=== PATIENT | female | born 1975 | race Caucasian/White ===

== ENCOUNTER → 2017-03-03 | Outpatient (CLI) | payer BC | END | disposition home or self-care (01) | LOC: CFH 13:09 | PROVIDERS: ATTEND Obstetrics & Gynecology | DX: Z12.31 Encounter for screening mammogram for malignant neoplasm of breast (principal) | CPT/HCPCS: 77063; G0202 ==

== ENCOUNTER → 2019-10-18 | Outpatient (CLI) | payer BC | END | disposition home or self-care (01) | LOC: CFH 09:46 | PROVIDERS: ATTEND Obstetrics & Gynecology | DX: R92.8 Other abnormal and inconclusive findings on diagnostic imaging of breast (principal); R23.4 Changes in skin texture | CPT/HCPCS: 76642; 77066; G0279 ==

== ENCOUNTER 2019-10-21 13:07 | Outpatient (CLI) | payer BC ==
[2019-10-21] MEDS ORDERED: LIDOCAINE 1%, 20ML ONE (13:30)
[2019-10-21] MEDS ORDERED: LIDOCAINE 1%-EPI 1:100K, 20ML ONE (13:30)
[2019-10-21] MEDS ORDERED: SODIUM BICARBONATE 4.2%, 5ML ONE (13:30)
== END 2019-10-21 23:59 | disposition home or self-care (01) ==
LOC: CFH 13:07
PROVIDERS: ATTEND Obstetrics & Gynecology
DX: N63.10 Unspecified lump in the right breast, unspecified quadrant (principal); C50.811 Malignant neoplasm of overlapping sites of right female breast; Z17.0 Estrogen receptor positive status [ER+]
CPT/HCPCS: 19083; 77065; 88305; 88341; 88342; 88360; J3490; 19285

== ENCOUNTER 2019-12-02 09:36 | Day surgery (SDC) | payer BC ==
[2019-11-29 11:12] LABS: BASOPHILS # (AUTO) 0.03 x10^3/uL (0-0.1); BASOPHILS % (AUTO) 1 % (0-1); EOSINOPHILS # (AUTO) 0.16 x10^3/uL (0-0.4); EOSINOPHILS % (AUTO) 4 % (1-7); LYMPHOCYTES # (AUTO) 1.98 x10^3/uL (1-3.4); LYMPHOCYTES % (AUTO) 49 % (22-44); MD NO; MEAN CORPUSCULAR HEMOGLOBIN 31.4 pg (27.0-34.8); MEAN CORPUSCULAR HGB CONC 33.8 g/dL (32.4-35.8); MEAN PLATELET VOLUME 8.6 fL (7.4-10.4); MONOCYTES % (AUTO) 5 % (2-9); NEUTROPHILS % (AUTO) 42 % (42-75); PLATELET COUNT 343 x10^3/uL (130-400); RED BLOOD COUNT 4.35 x10^6/uL (3.82-5.3); RED CELL DISTRIBUTION WIDTH 12.7 % (9.6-15.2)
[~2019-12-02] VITALS: Ht 170.2 cm; Wt 87.3 kg
[~2019-12-02 09:36] MED LIST: BACITRACIN 50,000 UNIT ONE; BUPIVACAINE/PF 0.5% ONE; CEFAZOLIN 1,000 MG ONE; CHOL10003 PO; EPINEPHRINE 1 MG/ML, 1ML ONE; GENTAMICIN 80 MG/2 ML ONE; ISOSULFAN BLUE 10 MG/ML, 5ML IV ONE; MULT-658 PO
[2019-12-02 10:01] VITALS: BP 127/88
[2019-12-02] MEDS ORDERED: LACTATED RINGERS 1,000 ML IV SCH (10:03)
[2019-12-02] MEDS ORDERED: CHLORHEXIDINE 15 ML UDC ONE (10:17)
[2019-12-02] MEDS ORDERED: ACETAMINOPHEN 500 MG TABLET PO STA (10:28)
[2019-12-02] MEDS ORDERED: SCOPOLAMINE 1MG PATCH TD SCH (10:28)
[2019-12-02] MEDS ORDERED: CHLORHEXIDINE 15 ML UDC MM ONE (10:30)
[2019-12-02] MEDS ORDERED: ACETAMINOPHEN 500 MG TABLET ONE (10:31)
[2019-12-02] MEDS ORDERED: SCOPOLAMINE 1MG PATCH TD ONE (10:31)
[2019-12-02] MEDS ORDERED: MIDAZOLAM 1 MG/ML, 2ML ONE (10:47)
[2019-12-02] MEDS ORDERED: FENTANYL PF 250 MCG/5ML ONE (10:47)
[2019-12-02] MEDS ORDERED: HYDROmorphone 1 MG/ML, 1ML INJ IVPush PRN (11:00)
[2019-12-02] MEDS ORDERED: DIAZEPAM 5 MG/ML, 2ML IVPush PRN (11:00)
[2019-12-02] MEDS ORDERED: ONDANSETRON 2MG/ML, 2ML IVPush PRN (11:00)
[2019-12-02] MEDS ORDERED: PROMETHAZINE 25 MG/ML, 1ML IVPush PRN (11:00)
[2019-12-02] MEDS ORDERED: MEPERIDINE/PF 25MG/0.5ML IVPush PRN (11:00)
[2019-12-02] MEDS ORDERED: OXYcodone 5 MG/5 ML ORAL.SOL UDC PO PRN (11:00)
[2019-12-02] MEDS ORDERED: ONDANSETRON 2MG/ML, 2ML ONE (11:26)
[2019-12-02] MEDS ORDERED: SUCCINYLCHOLINE 20 MG/ML, 10ML ONE (11:26)
[2019-12-02] MEDS ORDERED: KETOROLAC 30 MG/1 ML ONE (11:26)
[2019-12-02] MEDS ORDERED: DEXAMETHASONE 4 MG/ML, 1ML ONE (11:26)
[2019-12-02] MEDS ORDERED: PROPOFOL 10 MG/ML, 20ML ONE (11:26)
[2019-12-02] MEDS ORDERED: CEFAZOLIN 1,000 MG IM ONE (11:58)
[2019-12-02] MEDS ORDERED: BACITRACIN 50,000 UNIT IRRIG ONE (11:58)
[2019-12-02] MEDS ORDERED: BUPIVACAINE/PF-EPI 0.5% 1:200K INFIL ONE (11:58)
[2019-12-02] MEDS ORDERED: GENTAMICIN 80 MG/2 ML IV ONE (11:58)
[2019-12-02] MEDS ORDERED: ISOSULFAN BLUE 10 MG/ML, 5ML IV ONE (12:15)
[2019-12-02] MEDS ORDERED: FENTANYL PF 100 MCG/2ML ONE (14:05)
[2019-12-02] MEDS ORDERED: OXYcodone 5 MG/5 ML ORAL.SOL UDC ONE (14:06)
[2019-12-02] MEDS: FENTANYL PF 100 MCG/2ML IV PRN ×2 (14:17→14:24)
[2019-12-02] MEDS ORDERED: morphine SULFATE 10 MG/ML, 1ML ONE (15:06)
[2019-12-02] MEDS ORDERED: morphine SULFATE 10 MG/ML, 1ML IVPush PRN (15:30)
== END 2019-12-02 16:55 | disposition home or self-care (01) ==
LOC: OUT 09:36 → EDSTATUS 12:00 → OUT 16:55
PROVIDERS: ATTEND Surgery
DX: C50.411 Malignant neoplasm of upper-outer quadrant of right female breast (principal); Z20.828 Contact with and (suspected) exposure to other viral communicable diseases; D24.2 Benign neoplasm of left breast; N65.1 Disproportion of reconstructed breast; J45.909 Unspecified asthma, uncomplicated; Z17.0 Estrogen receptor positive status [ER+]; Z79.899 Other long term (current) drug therapy; Z87.891 Personal history of nicotine dependence; Z88.2 Allergy status to sulfonamides; Z91.040 Latex allergy status; Z91.048 Other nonmedicinal substance allergy status; Z98.890 Other specified postprocedural states; Z82.49 Family history of ischemic heart disease and other diseases of the circulatory system
CPT/HCPCS: 15570; 19301; 19316; 19318; 36415; 38525; 38792; 76098; 84703; 85025; 87635; 88305; 88307; 88329; 88333; 88342; 88360; A9541; C1729; J0171; J0330; J0690; J1100; J1580; J1885; J2250; J2270; J2405; J2704; J3010; J7120; A9552

== ENCOUNTER → 2020-02-01 | Outpatient (CLI) | payer BC ==
[~2020-02-01] MED LIST changes: +ACET600C6 PO; -BACITRACIN 50,000 UNIT ONE; -BUPIVACAINE/PF 0.5% ONE; -CEFAZOLIN 1,000 MG ONE; +ELDERBERRY FRUIT PO; -EPINEPHRINE 1 MG/ML, 1ML ONE; -GENTAMICIN 80 MG/2 ML ONE; -ISOSULFAN BLUE 10 MG/ML, 5ML IV ONE; +MULT-108 PO; +[UNRECOGNIZED DRUG - OTHER] PO; +[UNRECOGNIZED DRUG - OTHER] PO; +vitamin C PO
[2020-02-01 15:32] LABS: BASOPHILS % (AUTO) 1 % (0-1); EOSINOPHILS % (AUTO) 2 % (1-7); LYMPHOCYTES % (AUTO) 36 % (22-44); MEAN CORPUSCULAR HEMOGLOBIN 31.9 pg (27.0-34.8); MEAN CORPUSCULAR HGB CONC 33.5 g/dL (32.4-35.8); MEAN PLATELET VOLUME 8.6 fL (7.4-10.4); MONOCYTES % (AUTO) 6 % (2-9); NEUTROPHILS % (AUTO) 55 % (42-75); PLATELET COUNT 324 x10^3/uL (130-400); RED BLOOD COUNT 4.69 x10^6/uL (3.82-5.3); RED CELL DISTRIBUTION WIDTH 12.9 % (9.6-15.2)
[2020-02-01 15:35] LABS: MD NO
== END | disposition home or self-care (01) ==
LOC: STAR 13:28
PROVIDERS: ATTEND Surgery
DX: Z01.818 Encounter for other preprocedural examination (principal); Z01.812 Encounter for preprocedural laboratory examination; C50.411 Malignant neoplasm of upper-outer quadrant of right female breast
CPT/HCPCS: 36415; 84703; 85025

== ENCOUNTER 2020-02-05 05:40 | Day surgery (SDC) | payer BC ==
[~2020-02-05] VITALS: Ht 167.6 cm; Wt 89.1 kg
[~2020-02-05 05:40] MED LIST changes: +LIDOCAINE-MPF 1%, 5ML ONE
[2020-02-05 06:20] VITALS: BP 122/85
[2020-02-05] MEDS ORDERED: BACITRACIN 50,000 UNIT ONE (07:00)
[2020-02-05] MEDS ORDERED: BUPIVACAINE/PF 0.5% ONE (07:00)
[2020-02-05] MEDS ORDERED: EPINEPHRINE 1 MG/ML, 1ML ONE (07:00)
[2020-02-05] MEDS ORDERED: CEFAZOLIN 1,000 MG ONE (07:00)
[2020-02-05] MEDS ORDERED: GENTAMICIN 80 MG/2 ML ONE (07:00)
[2020-02-05] MEDS ORDERED: ISOSULFAN BLUE 10 MG/ML, 5ML IV ONE (07:00)
[2020-02-05] MEDS ORDERED: MIDAZOLAM 1 MG/ML, 2ML ONE (07:21)
[2020-02-05] MEDS ORDERED: FENTANYL PF 250 MCG/5ML ONE (07:21)
[2020-02-05] MEDS ORDERED: PROPOFOL 10 MG/ML, 20ML ONE (07:38)
[2020-02-05] MEDS ORDERED: DEXAMETHASONE 4 MG/ML, 1ML ONE (07:38)
[2020-02-05] MEDS ORDERED: SUCCINYLCHOLINE 20 MG/ML, 10ML ONE (07:38)
[2020-02-05] MEDS ORDERED: ROCURONIUM 10MG/ML,5ML ONE (07:38)
[2020-02-05] MEDS ORDERED: ONDANSETRON 2MG/ML, 2ML ONE (07:38)
[2020-02-05] MEDS ORDERED: KETOROLAC 30 MG/1 ML ONE (07:38)
[2020-02-05] MEDS ORDERED: BUPIVACAINE/PF-EPI 0.5% 1:200K INFIL ONE (08:32)
[2020-02-05] MEDS ORDERED: ONDANSETRON 2MG/ML, 2ML IVPush PRN ×2 (10:00→13:30)
[2020-02-05] MEDS ORDERED: MEPERIDINE/PF 25MG/0.5ML IVPush PRN (10:00)
[2020-02-05] MEDS ORDERED: OXYcodone 5 MG/5 ML ORAL.SOL UDC PO PRN (10:00)
[2020-02-05] MEDS ORDERED: PROMETHAZINE 25 MG/ML, 1ML IV PRN (10:00)
[2020-02-05] MEDS ORDERED: METOCLOPRAMIDE 5 MG/ML, 2ML IV PRN (10:00)
[2020-02-05] MEDS ORDERED: LABETALOL 5MG/ML, 20ML IV PRN (10:00)
[2020-02-05] MEDS ORDERED: DIAZEPAM 5 MG/ML, 2ML IV PRN ×2 (10:00)
[2020-02-05] MEDS ORDERED: hydrALAzine 20 MG/ML, 1ML IV PRN (10:00)
[2020-02-05] MEDS ORDERED: KETOROLAC 30 MG/1 ML IV PRN (10:00)
[2020-02-05] MEDS ORDERED: ALBUTEROL SULFATE 2.5 MG/3 ML NPPB PRN (10:00)
[2020-02-05] MEDS ORDERED: OXYcodone 5 MG/5 ML ORAL.SOL UDC ONE (10:57)
[2020-02-05] MEDS ORDERED: FENTANYL PF 100 MCG/2ML ONE (10:57)
[2020-02-05] MEDS: FENTANYL PF 100 MCG/2ML IV PRN ×2 (11:03→11:10)
[2020-02-05] MEDS ORDERED: HYDROmorphone 2 MG/ML, 1ML ONE (11:09)
[2020-02-05] MEDS: HYDROmorphone 1 MG/ML, 1ML INJ IV PRN ×3 (11:15→11:42)
[2020-02-05] MEDS ORDERED: LACTATED RINGERS 1,000 ML IV SCH (13:30)
[2020-02-05] MEDS ORDERED: MORPHINE SULFATE 4 MG/ML, 1ML IVPush PRN (13:30)
== END 2020-02-05 15:25 | disposition home or self-care (01) ==
LOC: RAD 05:40 → 4NE 06:14 → DCLOUNGE 15:09 → 4NE 15:20 → RAD 15:25
PROVIDERS: ATTEND Surgery
DX: C50.811 Malignant neoplasm of overlapping sites of right female breast (principal); J45.909 Unspecified asthma, uncomplicated; Z88.2 Allergy status to sulfonamides; Z88.1 Allergy status to other antibiotic agents; Z91.040 Latex allergy status; Z79.899 Other long term (current) drug therapy; Z72.89 Other problems related to lifestyle; Z87.891 Personal history of nicotine dependence; Z91.048 Other nonmedicinal substance allergy status; Z20.828 Contact with and (suspected) exposure to other viral communicable diseases; Z82.49 Family history of ischemic heart disease and other diseases of the circulatory system; Z80.3 Family history of malignant neoplasm of breast
CPT/HCPCS: 19301; 19357; 38525; 38792; 87635; 88307; 88333; A9541; C1729; C1762; C1789; J0171; J0330; J0690; J1100; J1170; J1580; J1885; J2250; J2405; J2704; J3010; G0378

== ENCOUNTER → 2020-02-23 | Outpatient (CLI) | payer BC ==
[~2020-02-23] MED LIST changes: -LIDOCAINE-MPF 1%, 5ML ONE
== END | disposition home or self-care (01) ==
LOC: ROC 07:19
PROVIDERS: ATTEND Radiology Radiation Oncology
DX: D05.12 Intraductal carcinoma in situ of left breast (principal); J45.909 Unspecified asthma, uncomplicated; Z79.899 Other long term (current) drug therapy; Z87.891 Personal history of nicotine dependence
CPT/HCPCS: 99214; G0463

== ENCOUNTER → 2020-07-14 | Outpatient (CLI) | payer BC ==
[~2020-07-14] MED LIST changes: +TAMO20TA PO
[2020-07-14 11:09] LABS: MICROSCOPIC INDICATED
[2020-07-14 11:10] LABS: BASOPHILS % (AUTO) 2 % (0-1); EOSINOPHILS % (AUTO) 3 % (1-7); LYMPHOCYTES % (AUTO) 56 % (22-44); MEAN CORPUSCULAR HEMOGLOBIN 31.7 pg (27.0-34.8); MEAN CORPUSCULAR HGB CONC 34.1 g/dL (32.4-35.8); MEAN PLATELET VOLUME 8.9 fL (7.4-10.4); MONOCYTES % (AUTO) 7 % (2-9); NEUTROPHILS % (AUTO) 32 % (42-75); PLATELET COUNT 288 x10^3/uL (130-400); RED BLOOD COUNT 4.12 x10^6/uL (3.82-5.3)
[2020-07-14 11:15] LABS: ALANINE AMINOTRANSFERASE 25 U/L (12-78); ALBUMIN 3.8 g/dL (3.4-5.0); ANION GAP 5 mmol/L (5-15); CALCIUM 8.9 mg/dL (8.5-10.1); CHLORIDE 113 mmol/L (98-107); CREATININE 0.61 mg/dL (0.55-1.02)
[2020-07-14 11:19] LABS: ALKALINE PHOSPHATASE 39 U/L (45-117); BILIRUBIN,TOTAL 0.3 mg/dL (0.2-1.0)
[2020-07-14 11:37] LABS: MD SCAN
== END | disposition home or self-care (01) ==
LOC: STAR 10:07
PROVIDERS: ATTEND Obstetrics & Gynecology
DX: Z01.812 Encounter for preprocedural laboratory examination (principal); N80.0 Endometriosis of uterus; N92.0 Excessive and frequent menstruation with regular cycle; C50.919 Malignant neoplasm of unspecified site of unspecified female breast; Z20.822 Contact with and (suspected) exposure to COVID-19; Z17.0 Estrogen receptor positive status [ER+]
CPT/HCPCS: 36415; 80053; 81001; 84702; 85025; 87086; U0003

== ENCOUNTER 2020-07-20 05:59 | Day surgery (SDC) | payer BC ==
[~2020-07-20] VITALS: Ht 170.2 cm; Wt 78.9 kg
[2020-07-20 06:42] VITALS: BP 137/96
[2020-07-20] MEDS ORDERED: GABAPENTIN 300 MG CAPSULE PO ONE (07:00)
[2020-07-20] MEDS ORDERED: ACETAMINOPHEN 500 MG TABLET PO ONE (07:00)
[2020-07-20] MEDS ORDERED: CHLORHEXIDINE 15 ML UDC PO ONE (07:00)
[2020-07-20] MEDS ORDERED: LACTATED RINGERS 1,000 ML IV SCH (07:00)
[2020-07-20] MEDS ORDERED: ENOXAPARIN 40 MG/0.4 ML SQ ONE (07:00)
[2020-07-20] MEDS ORDERED: MIDAZOLAM 1 MG/ML, 2ML ONE (07:06)
[2020-07-20] MEDS ORDERED: FENTANYL PF 100 MCG/2ML ONE (07:07)
[2020-07-20 07:09] LABS: HCG UR SG 1.012 (1.003-1.030)
[2020-07-20] MEDS ORDERED: NITROFURANTOIN PO (07:18)
[2020-07-20] MEDS ORDERED: CLARITIN PO (07:18)
[2020-07-20] MEDS ORDERED: FLUORESCEIN SODIUM 500 MG/5 ML ONE (07:21)
[2020-07-20] MEDS ORDERED: EPINEPHRINE 1 MG/ML, 1ML ONE (07:21)
[2020-07-20] MEDS ORDERED: BUPIVACAINE/PF 0.25% ONE (07:21)
[2020-07-20] MEDS ORDERED: FENTANYL PF 100 MCG/2ML IV PRN (07:30)
[2020-07-20] MEDS ORDERED: PROMETHAZINE 25 MG/ML, 1ML IVPush PRN (07:30)
[2020-07-20] MEDS ORDERED: ONDANSETRON 2MG/ML, 2ML IVPush PRN (07:30)
[2020-07-20] MEDS ORDERED: HYDROmorphone 1 MG/ML, 1ML INJ IVPush PRN (07:30)
[2020-07-20] MEDS ORDERED: HYDROcodone/APAP 7.5-325MG/15ML UDC PO PRN (07:30)
[2020-07-20] MEDS ORDERED: MEPERIDINE/PF 25MG/0.5ML IVPush PRN (07:30)
[2020-07-20] MEDS ORDERED: CEFAZOLIN PMX 2GM/50ML 50 ML IVPB ONE (07:30)
[2020-07-20] MEDS ORDERED: OXYcodone 5 MG/5 ML ORAL.SOL UDC PO PRN (07:30)
[2020-07-20] MEDS ORDERED: NEOSTIGMINE 1 MG/ML, 10ML ONE (08:06)
[2020-07-20] MEDS ORDERED: GLYCOPYRROLATE 0.2MG/1ML, 5ML ONE (08:06)
[2020-07-20] MEDS ORDERED: CEFAZOLIN 1,000 MG ONE (08:06)
[2020-07-20] MEDS ORDERED: PROPOFOL 10 MG/ML, 20ML ONE (08:06)
[2020-07-20] MEDS ORDERED: ROCURONIUM 10MG/ML,5ML ONE (08:06)
[2020-07-20] MEDS ORDERED: SUCCINYLCHOLINE 20 MG/ML, 10ML ONE (08:06)
[2020-07-20] MEDS ORDERED: ONDANSETRON 2MG/ML, 2ML ONE (08:06)
[2020-07-20] MEDS ORDERED: MEPERIDINE/PF 25MG/ML,1ML ONE (10:16)
== END 2020-07-20 14:20 | disposition home or self-care (01) ==
LOC: OUT 05:59
PROVIDERS: ATTEND Obstetrics & Gynecology
DX: N92.0 Excessive and frequent menstruation with regular cycle (principal); N94.6 Dysmenorrhea, unspecified; N80.0 Endometriosis of uterus; N73.6 Female pelvic peritoneal adhesions (postinfective); N81.5 Vaginal enterocele; D27.1 Benign neoplasm of left ovary; D27.0 Benign neoplasm of right ovary; N83.12 Corpus luteum cyst of left ovary; N83.11 Corpus luteum cyst of right ovary; N83.02 Follicular cyst of left ovary; N83.01 Follicular cyst of right ovary; N84.0 Polyp of corpus uteri; D25.9 Leiomyoma of uterus, unspecified; G43.909 Migraine, unspecified, not intractable, without status migrainosus; Z79.899 Other long term (current) drug therapy; Z85.3 Personal history of malignant neoplasm of breast; Z86.718 Personal history of other venous thrombosis and embolism; Z88.2 Allergy status to sulfonamides; Z88.8 Allergy status to other drugs, medicaments and biological substances; Z91.040 Latex allergy status; Z90.11 Acquired absence of right breast and nipple; Z98.890 Other specified postprocedural states; Z82.49 Family history of ischemic heart disease and other diseases of the circulatory system; Z82.61 Family history of arthritis; Z83.42 Family history of familial hypercholesterolemia
CPT/HCPCS: 57283; 58552; 81025; 88307; J0171; J0330; J0690; J1650; J2175; J2250; J2405; J2704; J2710; J3010; J7120